=== PATIENT | female | born 1945 | race Asian ===

== ENCOUNTER 2017-08-14 14:37 | Inpatient (IN) | payer OTHER ==
[~2017-08-14] VITALS: Ht 121.9 cm; Wt 52.4 kg
[~2017-08-14 14:37] MED LIST: ABILIFY5 MG PO; ACIPHEX20 MG PO; ATIVAN0.5 MG PO; AZO DINE95 MG PO; BENICAR20 MG PO; BENICAR40 MG PO; BLOOD PRESSURE MED; Benicar PO; CYMBALTA60 MG PO; DIVALPROEX SOD250 M1 PO; GABAPENTIN300 MG PO; GABAPENTIN600 MG PO; HALCION0.25 MG PO; IRON325 M1 PO; KADIAN20 MG PO; KLONOPIN0.5 M1 PO; LEVAQUIN500 MG PO; LEXAPRO20 MG PO; LINZESS145 MCG PO; LORAZEPAM1 MG PO; MORPHINE SULFAT30 M2 PO; NEXIUM20 MG PO; NEXIUM40 MG PO; OXYCODONE HCL15 MG PO; OXYCODONE HCL20 M1 PO; OXYCODONE HCL5 MG PO; OXYCONTIN10 MG PO; PANTOPRAZOLE SO40 MG PO; PERCOCET 5-3251 EACH PO; PROMETHAZINE12.5 M1 PO; ROPINIROLE HC0.25 MG PO; SEROQUEL XR50 MG PO; SERTRALINE HCL100 MG PO; SERTRALINE HCL50 MG PO; SIMVASTATIN20 MG PO; VENTOLIN HFA18 GM IH; VICODIN ES 71 TABLET PO; Vicoprofen PO; XARELTO10 MG PO; Zoloft PO
[2017-08-14 15:41] LABS: APPEARANCE CLEAR ((CLEAR)); BILIRUBIN NEGATIVE; BLOOD SMALL; COLOR STRAW ((YELLOW)); GLUCOSE (STRIP) NEGATIVE; KETONES NEGATIVE; LEUKOCYTES TRACE; NITRITE NEGATIVE; PROTEIN (STRIP) NEGATIVE; SPECIFIC GRAVITY 1.004 (1.000-1.030); UROBILINOGEN 0.2 MG/DL (0.2-1.0)
[2017-08-14 15:45] LABS: HEMATOCRIT 33.2 % (36.0-46.0); HEMOGLOBIN 10.8 G/DL (11.9-15.5); MCH 27.4 PG (29.0-34.0); MCHC 32.5 G/DL (30.0-36.0); MCV 84.3 FL (83-99); PLATELET COUNT 212 K/uL (156-360); RBC DIS.WIDTH-CV 13.2 % (11.8-14.6); RBC DIS.WIDTH-SD 41.1 % (39-53); RED BLOOD COUNT 3.94 M/uL (3.80-5.20); WHITE BLOOD COUNT 7.9 K/uL (4.1-10.2)
[2017-08-14 15:54] LABS: BACTERIA RARE /HPF; EPITHELIAL CELLS RARE /HPF; MUCUS TRACE /LPF; RED BLOOD CELLS 0-5 /HPF (0-5); UCUL ADDED? NO; WHITE BLOOD CELLS 0-5 /HPF (0-5)
[2017-08-14 15:55] LABS: CHLORIDE 102 mEq/L (99-109); POTASSIUM 4.2 mEq/L (3.7-5.4); SODIUM 137 mEq/L (136-147)
[2017-08-14 15:58] LABS: GLUCOSE 106 mg/dL (70-99); TOTAL PROTEIN 7.4 g/dL (6.4-8.3)
[2017-08-14 15:59] LABS: TOTAL BILIRUBIN 0.4 mg/dL (0.0-1.0)
[2017-08-14 16:01] LABS: ALKALINE PHOSPHATASE 90 IU/L (3-129); CREATININE 1.2 mg/dL (0.6-1.3); GFR ESTIMATE (CALCULATED) 47 mL/min/
[2017-08-14 16:02] LABS: UREA NITROGEN (BUN) 13 mg/dL (9-23)
[2017-08-14 16:03] LABS: AST (GOT) 18 IU/L (2-34)
[2017-08-14 16:04] LABS: ALT (GPT) 9 IU/L (3-49)
[2017-08-14 16:08] LABS: TROP-I INTERPRETATION NEGATIVE; TROPONIN-I < 0.01 ng/mL (0.0-0.30)
[2017-08-14] MEDS ORDERED: KADIAN100 MG PO (19:20)
[2017-08-14] MEDS ORDERED: OXYCODONE HCL10 MG PO (19:21)
[2017-08-14] MEDS ORDERED: ADVIL200 MG PO (19:22)
[2017-08-14] MEDS ORDERED: LORAZEPAM1 MG PO (19:27)
[2017-08-14 22:22] VITALS: BP 89/53
[2017-08-14 23:12] VITALS: BP 146/84
[2017-08-15 04:20] VITALS: BP 111/70
[2017-08-15 07:49] VITALS: BP 94/58
[2017-08-15 13:11] VITALS: BP 98/57
[2017-08-15 15:41] VITALS: BP 90/55
[2017-08-15 19:50] VITALS: BP 107/58
[2017-08-16 00:07] VITALS: BP 99/65
[2017-08-16 05:08] VITALS: BP 109/58
[2017-08-16 08:08] VITALS: BP 119/67
[2017-08-16 11:17] VITALS: BP 122/66
[2017-08-16 15:44] VITALS: BP 116/61
[2017-08-16 21:15] VITALS: BP 92/50
[2017-08-17] VITALS (8 sets, daily range): BP systolic 117–176; BP diastolic 58–99
[2017-08-18 03:54] VITALS: BP 133/96
[2017-08-18 05:29] LABS: HEMATOCRIT 34.5 % (36.0-46.0); HEMOGLOBIN 11.5 G/DL (11.9-15.5); MCH 27.4 PG (29.0-34.0); MCHC 33.3 G/DL (30.0-36.0); MCV 82.1 FL (83-99); PLATELET COUNT 193 K/uL (156-360); RBC DIS.WIDTH-SD 38.9 % (39-53); WHITE BLOOD COUNT 11.2 K/uL (4.1-10.2)
[2017-08-18 05:56] LABS: CHLORIDE 106 MEQ/L (99-109); CREATININE 0.9 MG/DL (0.6-1.3); GFR ESTIMATE (CALCULATED) > 59 mL/min/; GLUCOSE 98 mg/dL (70-99); POTASSIUM 3.7 MEQ/L (3.7-5.4); SODIUM 140 MEQ/L (136-147); UREA NITROGEN (BUN) 14 mg/dL (9-23)
[2017-08-18 07:27] VITALS: BP 172/94
[2017-08-18 11:24] VITALS: BP 191/106
[2017-08-18] MEDS ORDERED: METRONIDAZOLE500 MG PO (14:25)
[2017-08-18] MEDS ORDERED: PRAVASTATIN SOD40 MG PO (14:25)
[2017-08-18 15:39] VITALS: BP 147/97
== END 2017-08-18 18:35 | disposition home health service (06) | DRG 84 ==
LOC: EME → TRA 14:37 → EME 14:37 → EDBD 14:37 → 4EAST 18:00 → 5WEST 18:00 → EDOF 18:00 → ENRESERV 18:18 → 4EAST 22:07 → ENRESERV 08-17 14:42 → 5WEST 08-17 17:37
PROVIDERS: Emergency Medicine; Family Medicine
DX: S06.5X9A Traumatic subdural hemorrhage with loss of consciousness of unspecified duration, initial encounter (principal); W10.9XXA Fall (on) (from) unspecified stairs and steps, initial encounter; Y92.008 Other place in unspecified non-institutional (private) residence as the place of occurrence of the external cause; R40.2410 Glasgow coma scale score 13-15, unspecified time; R27.0 Ataxia, unspecified; K59.00 Constipation, unspecified; G89.29 Other chronic pain; M25.511 Pain in right shoulder; M25.562 Pain in left knee; M54.2 Cervicalgia; M79.604 Pain in right leg; M79.605 Pain in left leg; I10 Essential (primary) hypertension; K21.9 Gastro-esophageal reflux disease without esophagitis; K58.9 Irritable bowel syndrome, unspecified; M19.90 Unspecified osteoarthritis, unspecified site; F32.9 Major depressive disorder, single episode, unspecified; F41.9 Anxiety disorder, unspecified; Z87.891 Personal history of nicotine dependence
CPT/HCPCS: 70450; 71046; 72125; 73030; 73564; 74177; 80048; 80053; 81003; 84484; 85027; 90686; 93005; 94799; 99281; 99285